=== PATIENT | male | born 1945 | race Caucasian/White ===

== ENCOUNTER 2020-10-16 06:57 | Outpatient (NON) | payer MEDICARE, SELFPAY ==
[2020-10-16 23:21] LABS: SARS-CoV-2 RNA PCR Negative
== END 2020-10-16 06:58 ==
LOC: ANHCOVIDDT 07:03
PROVIDERS: PCP Internal Medicine; Visit Provider Internal Medicine
DX: R68.89 Other general symptoms and signs (principal); Z20.828 Contact with and (suspected) exposure to other viral communicable diseases
CPT/HCPCS: 87635; C9803; U0003

== ENCOUNTER 2021-08-04 00:34 | Day surgery (SDC) | payer MEDICARE, SELFPAY ==
[2021-08-04 07:39] VITALS: BP 129/90; PULSE 65; RESP 18; TEMP 36.2; O2SAT 100; BMI 24.6
[2021-08-04] MEDS: LACTATED RINGERS 1,000 ML 150 ML IV CONT (07:49)
--- NOTE | 2021-08-04 08:07 | WPDANESEPPF ---
Anes - Initial Pre Proc Eval Procedure: Operation Date: 08/04/21 08:30 Proposed Procedures p Screening Colonoscopy - Moises High MD Date/Time: 08/04/21 08:07 Surgeon: Moises High MD Pre Op Diagnosis: hx of colon polyps Patient Data Age: 76 Gender: M Height: 1.83 m Weight: 82.4 kg Last Vital Signs Temp 97.2 F L 08/04/21 07:39 Pulse 65 08/04/21 07:39 Resp 18 08/04/21 07:39 BP 129/90 08/04/21 07:39 Pulse Ox 100 08/04/21 07:39 Allergies Allergy/AdvReac Type Severity Reaction Status Date / Time No Known Allergies Allergy Mild Verified 08/04/21 07:37 Home Medications Medication Instructions Recorded Confirmed Type aspirin 81 mg tablet,delayed 81 mg PO DAILY 10/18/19 07/22/21 History release omega-3 fatty acids 1,000 mg 2,000 mg PO BID cap 10/18/19 07/22/21 History capsule cholecalciferol (vitamin D3) 25 25 mcg PO DAILY 08/04/20 07/22/21 History mcg (1,000 unit) tablet rosuvastatin 10 mg tablet See Rx Instructions .ROUTE 05/25/21 07/22/21 Rx .COMPLEX #90 tablet levothyroxine 75 mcg tablet See Rx Instructions .ROUTE 07/27/21 08/04/21 Rx .COMPLEX #90 tablet Patient hx anesthesia problems: none Family hx anesthesia problems: none Results Review: All pre-operative results and documents have been reviewed as part of the pre-operative evaluation. [facility] Past Medical History Medical History (Updated 05/25/21 @ 13:23 by Catrachita Florence CMA) BMI 25.0-25.9,adult Chronic deafness Colon cancer screening Encounter for Medicare annual wellness exam Encounter for routine adult health examination without abnormal findings Exposure to COVID-19 virus Fatigue Hearing loss Hx of colonic polyps Hypersomnolence Hypothyroidism Mixed hyperlipidemia On fci drug therapy Testosterone deficiency Vitamin D deficiency Family History Family History Mother Family history of Alzheimer's disease Father Family history of congestive heart failure Social History Social History Smoking packs per day: 1 Smoking cigarettes per day: 20.0 Years smoked: 18 Smoking pack-years: 18.00 Smoking status: Former smoker Tobacco type: cigarettes Second hand tobacco smoke exposure: No Smoking end date: 11/06/78 Alcohol intake: current Drinks per week: 5 Substance use: never Substance use type: does not use Living arrangements: with family Spiritual care concerns: No Anes - Eval Final PreProcedure Day of Procedure 08/04/21 08:07 Patient weight: normal Heart: regular rate and rhythm Lungs: clear to auscultation Airway: Mallampati scale class II Neurological: alert and oriented Last oral intake: >/= 8 hours ASA classification: II Emergent: no Anesthetic plan: proceed Anesthesia type and monitoring: general GIVS and standard monitoring Results Review: All pre-operative results and documents have been reviewed as part of the pre-operative evaluation. Informed Consent: The patient's anesthetic plan and its attendant risks and benefits were discussed with the patient/family/POA. Questions were solicited and answers provided to the satisfaction of the patient/family/POA.
--- NOTE | 2021-08-04 08:16 | WPDGICN ---
Assessment and Plan Assessment and plan (1) Hx of colonic polyps: Code(s): Z86.010 - Personal history of colonic polyps Status: Acute Assessment and Plan: Patient has a history of adenomatous colon polyp removed the colon 2014. Plan is for surveillance exam at this time. Further recommendations will be given after endoscopy. GI Consult Note Consult date/time: 08/04/21 08:16 HPI: Elijah Felix is a 76 year old male Presents for screening colonoscopy. Patient has a history of adenomatous colon polyp removed from the colon in 2014. Patient's current weight appetite bowel movements are normal. He denies abdominal pain. He has had bleeding. Family history is noncontributory. Neoplasia screening will be performed today. Review of Systems Review of Systems: All systems reviewed & are unremarkable except as noted in HPI and below PMFSH Past Medical History Medical History (Updated 05/25/21 @ 13:23 by Catrachita Florence [facility]) BMI 25.0-25.9,adult Chronic deafness Colon cancer screening Encounter for Medicare annual wellness exam Encounter for routine adult health examination without abnormal findings Exposure to COVID-19 virus Fatigue Hearing loss Hx of colonic polyps Hypersomnolence Hypothyroidism Mixed hyperlipidemia On emt intermediate drug therapy Testosterone deficiency Vitamin D deficiency Family History Family History Mother Family history of Alzheimer's disease Father Family history of congestive heart failure Social History Social History Smoking packs per day: 1 Smoking cigarettes per day: 20.0 Years smoked: 18 Smoking pack-years: 18.00 Smoking status: Former smoker Tobacco type: cigarettes Second hand tobacco smoke exposure: No Smoking end date: 11/06/78 Alcohol intake: current Drinks per week: 5 Substance use: never Substance use type: does not use Living arrangements: with family Spiritual care concerns: No Meds Home Medications and Allergies Home Medications Medication Instructions Recorded Confirmed Type aspirin 81 mg tablet,delayed 81 mg PO DAILY 10/18/19 07/22/21 History release omega-3 fatty acids 1,000 mg 2,000 mg PO BID cap 10/18/19 07/22/21 History capsule cholecalciferol (vitamin D3) 25 25 mcg PO DAILY 08/04/20 07/22/21 History mcg (1,000 unit) tablet rosuvastatin 10 mg tablet See Rx Instructions .ROUTE 05/25/21 07/22/21 Rx .COMPLEX #90 tablet levothyroxine 75 mcg tablet See Rx Instructions .ROUTE 07/27/21 08/04/21 Rx .COMPLEX #90 tablet Allergies Allergy/AdvReac Type Severity Reaction Status Date / Time No Known Allergies Allergy Mild Verified 08/04/21 07:37 Vital Signs Vital Signs - 24 hr 08/04/21 07:39 Temperature 97.2 F L Pulse Rate 65 Respiratory Rate 18 Blood Pressure 129/90 Pulse Oximetry 100 Exam Narrative: Physical exam reveals patient to be alert. Vital signs are stable. HEENT exam is unremarkable. Patient is anicteric. Lungs are clear to auscultation and percussion. Heart is without murmur or extra sounds. Abdominal exam bowel sounds are present soft nontender with no hepatosplenomegaly digital external rectal exam is normal.
[2021-08-04 08:46] VITALS: BP 87/51; PULSE 64; RESP 23; O2SAT 100
[2021-08-04 08:56] VITALS: BP 92/60; PULSE 69; RESP 23; O2SAT 100
[2021-08-04 09:06] VITALS: BP 105/70; PULSE 58; RESP 17; O2SAT 100
== END 2021-08-04 09:25 | disposition home or self-care (01) ==
PROVIDERS: PCP Internal Medicine; Visit Provider Internal Medicine Gastroenterology
PROC: 0DJD8ZZ Inspection of Lower Intestinal Tract, Via Natural or Artificial Opening Endoscopic (ICD-10-PCS; CPT 45378; principal; 2021-08-04 08:30)
DX: Z12.11 Encounter for screening for malignant neoplasm of colon (principal); K64.8 Other hemorrhoids; K57.30 Diverticulosis of large intestine without perforation or abscess without bleeding; Z86.010 Personal history of colon polyps; E78.2 Mixed hyperlipidemia; E03.9 Hypothyroidism, unspecified; E55.9 Vitamin D deficiency, unspecified; Z87.891 Personal history of nicotine dependence; Z79.82 Long term (current) use of aspirin
CPT/HCPCS: G0105; J2704; J7120

== ENCOUNTER 2025-05-12 14:34 | Outpatient (CLI) | payer MEDICARE, SELFPAY ==
--- OUTSIDE RECORDS SUMMARY | 2025-05-12 14:36 | XMS_ITS | Clinical Summary ---
Author Organization [facility] Address [address] [place] [id number] Care Team Providers Care Media Producer Name Role Phone Unavailable Primary Care Provider Unavailabl e Social History Tobacco Use Types Packs/Day Years Used Date Smoking Tobacco: Never Assessed Sex and Gender Information Value Date Recorded Sex Assigned at Not on file Legal Sex Male 8:03 PM CDT Gender Identity Not on file Sexual Orientation Not on file Plan of Treatment Health Maintenance Due Date Last Done Comments DTaP, Tdap and Td Vaccines ( 1 - Tdap) 01/05/1964 Pneumococcal Vaccine: 50+ Ye ars (1 of 1 - PCV) 1995 Zoster Vaccines (1 of 2) 1995 RSV Immunization or 60+ Years (1 - 1-dose 75+ series) 01/05/2020 COVID-19 Vaccine ( - 2023-2 5 season) 2024 Meningococcal B Vaccine Aged Out No l onger eligible based on patient's age to complete this topic Meningococcal Vaccine Aged Out No jv alesia eligible based on patient's age to complete this topic RSV Immunizations Under 20 Months Aged Out No longer eligible based on patient's age to complete this topic
--- NOTE | 2025-05-12 14:45 | ECHO_ITS ---
Patient Info Name: Elijah Felix Age: 80 years : 1945 Gender: Male Ht: 72 in Wt: 182 lbs BSA: 2.05 m2 HR: 59 bpm BP: 141 / 84 mmHg Technical Quality: Good Exam Date: 05/12/2025 2:52 PM Patient Status: O Admit Date: 05/12/2025 Exam Type: CA echo doppler color flow Complete two-dimensional, color flow and Doppler transthoracic echocardiogram is performed. Roll Scale Man: Tracey Rojo Attending Provider: Eliseo Cook MD Summary 1. Complete two-dimensional, color flow and Doppler transthoracic echocardiogram is performed. 2. Left ventricular chamber dimension is normal. 3. Left ventricular systolic function is normal, estimated at 60-65. 4. There is mild concentric increased left ventricular wall thickness. 5. The left ventricular diastolic function is normal. 6. E/e' 6 is not elevated. 7. There is mild aortic valve sclerosis. 8. There is mild aortic valve regurgitation. 9. There is trace mitral valve regurgitation. 10. There is mild tricuspid valve regurgitation. 11. No pulmonary hypertension, estimated pulmonary arterial systolic pressure is 32 mmHg. Left Ventricle E/e' 6 is not elevated. Left ventricular chamber dimension is normal. Left ventricular systolic function is normal, estimated at 60-65. There is mild concentric increased left ventricular wall thickness. The left ventricular diastolic function is normal. Right Ventricle Right ventricular chamber dimension is normal. Right ventricular systolic function is normal and with normal TAPSE 2.1 cm. Left Atria Left atrial chamber dimension is normal. Right Atria Right atrial chamber dimension is normal. Aortic Valve The aortic valve is trileaflet. There is mild aortic valve sclerosis. There is no aortic valve stenosis. There is mild aortic valve regurgitation. Pulmonic Valve There is no pulmonic regurgitation. Mitral Valve There is no mitral valve stenosis. There is trace mitral valve regurgitation. Tricuspid Valve There is mild tricuspid valve regurgitation. No pulmonary hypertension, estimated pulmonary arterial systolic pressure is 32 mmHg. Pericardium/Pleural There is no pericardial effusion. Inferior Vena Cava Normal inferior vena cava with >50% collapse upon inspiration consistent with normal right atrial pressure, 5 mmHg. Aorta The aortic root size at the sinus of Valsalva is normal. Left Ventricular Outflow Tract Name Value Normal LVOT 2D LVOT Diameter 2.0 cm LVOT Doppler LVOT Peak Velocity 121 cm/s LVOT Peak Gradient 6 mmHg LVOT Mean Gradient 3 mmHg LVOT VTI 23 cm LVOT VTI/AV VTI Ratio 0.9 LVOT Stroke Volume 70 ml LVOT CO 4.1 l/min LVOT CI 2.0 l/min/m2 Pulmonic Valve Name Value Normal RVOT Doppler RVOT Peak Velocity 62 cm/s RVOT Peak Gradient 2 mmHg PV Doppler PV Peak Velocity 104 cm/s PV Peak Gradient 4 mmHg Mitral Valve Name Value Normal MV Diastolic Function MV E Peak Velocity 62 cm/s MV A Peak Velocity 60 cm/s MV E/A 1.0 MV Decel Time (PW) 196 ms Tricuspid Valve Name Value Normal TV Regurgitation Doppler TR Peak Velocity 262 cm/s TR Peak Gradient 24 mmHg Estimated PAP/RSVP RA Pressure 5 mmHg <=5 PA Systolic Pressure 32 mmHg <36 RV Systolic Pressure 32 mmHg <36 TV Annular TDI TV Lateral Haley s' Velocity 17.1 cm/s >=9.5 Aorta Name Value Normal Ascending Aorta Ao Root Diameter (MM) 3.5 cm Ao Root Diam Index (MM) 1.7 cm/m2 Aortic Valve Name Value Normal AV Doppler AV Peak Velocity 124 cm/s AV Peak Gradient 6 mmHg AV Mean Gradient 3 mmHg AV VTI 26 cm AV Area (Cont Eq VTI) 2.7 cm2 >=3.0 AV Area (Cont Eq Gigi) 3.0 cm2 AV DI (Gigi) 0.97 AV Regurgitation 2D LVOT Area 3.1 cm2 Ventricles Name Value Normal LV Dimensions 2D/MM IVS Diastolic Thickness (2D) 0.9 cm 0.6-1.0 IVS Diastole Thickness (MM) 1.4 cm 0.6-1.0 LVID Diastole (2D) 4.2 cm 4.2-5.8 LVID Diastole (MM) 6.4 cm 4.2-5.8 LVIW Diastolic Thickness (2D) 0.9 cm 0.6-1.0 LVIW Diastolic Thickness (MM) 1.0 cm 0.6-1.0 LVID Systole (2D) 2.8 cm 2.5-4.0 LVID Systole (MM) 4.0 cm 2.5-4.0 LVOT Diameter 2.0 cm LV Mass (2D Cubed) 123.42 g 88.00-224.00 LV Mass Index (2D Cubed) 60 g/m2 49-115 Relative Wall Thickness (2D) 0.44 <=0.42 LV Mass (MM Cubed) 342.36 g 88.00-224.00 LV Mass Index (MM Cubed) 167 g/m2 49-115 Relative Wall Thickness (MM) 0.31 LV Fractional Shortening/Ejection Fraction 2D/MM LV Fractional Shortening (2D) 32 % 25-43 LV Fractional Shortening (MM) 38 % 25-43 LV EF (MM Teichholz) 67 % LV EF (2D Teichholz) 61 % LV Diastolic Volume (4C MOD) 61 ml LV EF (4C MOD) 57 % LV Diastolic Volume (2C MOD) 72 ml LV EF (2C MOD) 68 % LV Diastolic Volume (BP MOD) 66 ml 62-150 LV Diastolic Volume Index (BP MOD) 32 ml/m2 34-74 LV Systolic Volume (BP MOD) 25 ml 21-61 LV Systolic Volume Index (BP MOD) 12 ml/m2 11-31 LV EF (BP MOD) 62 % 52-72 LV Diastolic Length (4C) 8.0 cm LV Systolic Length (4C) 6.4 cm LV Stroke Volume (4C MOD) 35 ml Atria Name Value Normal LA Dimensions LA Dimension (MM) 3.7 cm 3.0-4.0 LA Volume (4C A-L) 47 ml LA Volume (BP A-L) 47 ml RA Dimensions RA Systolic Major [place] Length (4C) 5.3 cm 2.1-2.7 RA Area (4C) 17.9 cm2 <=18.0 Report Signatures
== END 2025-05-12 14:35 | disposition home or self-care (01) ==
LOC: ANHCARD 14:35
PROVIDERS: PCP Internal Medicine; Visit Provider Internal Medicine
DX: R94.31 Abnormal electrocardiogram [ECG] [EKG] (principal); I36.1 Nonrheumatic tricuspid (valve) insufficiency; I34.0 Nonrheumatic mitral (valve) insufficiency
CPT/HCPCS: 93306